=== PATIENT | female | born 1940 | race Caucasian/White ===

== ENCOUNTER 2016-10-12 19:01 | Inpatient (IN) | payer OTHER ==
[~2016-10-12] VITALS: Ht 180.3 cm; Wt 63.5 kg
--- NOTE | ~2016-10-12 | EKG ---
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 : 1940 Requested By: Maurizio Beach Order Number: [id number] MD: Tray Gonzalez Measurements Intervals [place] Rate: 79 P: -70 TN: 178 QRS: -7 QRSD: 90 T: -65 QT: 433 QTc: 497 Interpretive Statements Ectopic atrial rhythm Multiple ventricular premature complexes Abnormal R-wave progression, early transition ST and T wave abnormality Borderline prolonged QT interval Compared to ECG 08/06/2016 19:00:38 supraventricular complexes no longer present Electronically Signed On 10-13-2016 9:23:53 CDT by Tray Gonzalez [email or web address] <ELECTRONICALLY SIGNED> By: Tray Gonzalez MD, [facility] 10/13/16 0923 22 22 Tray Gonzalez MD, [facility] /EPI
--- NOTE | ~2016-10-12 | D ---
[facility] [address] [place] [address] DISCHARGE SUMMARY Name: YUARIAS Room #: 422-P [facility] IN M.R.#: [id number] Admission: 10/12/16 Attend Phys: Sharon Mora MD Discharge: 10/14/16 Date of : 38 Report #: [id number] THIS REPORT FOR: //name// CC: Carla Mora DATE OF SERVICE: 10/14/2016 HISTORY OF PRESENT ILLNESS: The patient is a 76-year-old female who was brought to the emergency room for low energy level, and inability to take care herself. She was found to have urinary tract infection, as well as hypokalemia, with potassium of 2.9. Please refer to the admission H and P for details. The patient was hospitalized at [facility]. She was started on Rocephin for UTI treatment. She was also provided with IV fluids, as dehydration was suspected. Urine culture grew E. coli, that is resistant to Cipro, sensitive to Bactrim. The patient was also found to have hypokalemia, which is a chronic problem for the patient. Potassium has been replaced. The patient states that she cannot take potassium pills, because she develops nausea. I checked with the pharmacy, and enteric-coated tablet can be provided to the patient. The patient also has history of hypertension, she is on amlodipine and valsartan. Given hypokalemia, workup for hyperaldosteronism can be warranted as an outpatient. The patient was seen and evaluated by physical therapist. She is still weak. She will benefit from rehab. The patient will be transferred to halfway facility. Currently, the patient's condition is medically stable as documented in the patient's chart. DISCHARGE DIAGNOSES: 1. Severe urinary tract infection due to Escherichia coli. Clinically much better. 2. Hypokalemia, replaced. 3. Hypertension. The patient was hypotensive on admission, but now blood pressure is stable. Medications will be resumed. 4. Chronic hypokalemia. Potassium will be replaced. The patient may need to have further workup for hyperaldosteronism. 5. History of depression. 6. Mild protein-calorie malnutrition. 7. History of PE, Xarelto was discontinued in the beginning of August 2016. 8. Chronic back pain. 9. Debility. [address] [address] DISCHARGE SUMMARY Name: ARIAS YU Room #: 422-P [facility] IN .R.#: [id number] Admission: 10/12/16 Attend Phys: Sharon Mora MD Discharge: 10/14/16 Date of : 38 Report #: [id number] DISCHARGE MEDICATIONS: Please refer to the medication reconciliation list in EMR. DISPOSITION: The patient is discharged to a halfway facility. FOLLOWUP PLAN: Follow up with the primary care physician in 1-2 weeks. I spent about 30 minutes to coordinate the patient's discharge from the hospital. <ELECTRONICALLY SIGNED> By: Sharon Mora MD 10/18/16 2227 1342 1422 Sharon Mora MD /nt
[~2016-10-12 19:01] MED LIST: CIPRO500 MG PO; DIOVAN160 MG PO; EFFER-K 20 MEQ20 ME1 PO; LIDODERM 5%1 PATC1 TRANSDERM; MACROBID 100 M100 M1 PO; NEURONTIN 300300 M1 PO; NEURONTIN 300M300 M2 PO; NORVASC10 MG PO; OXYCONTIN20 M1 PO; PERCOCET 10-321 EACH PO; PROTONIX40 M1 PO; SLOW-MAG64 MG PO; XARELTO15 MG PO; XARELTO20 MG PO; ZANAFLEX4 M2 PO
[2016-10-12 19:13] VITALS: BP 113/68
[2016-10-12] MEDS ORDERED: REQUIP 0.25 M0.25 M1 PO (19:20)
[2016-10-12 19:35] LABS: URINE BILIRUBIN NEGATIVE (Negative); URINE BLOOD NEGATIVE (Negative); URINE COLOR YELLOW; URINE GLUCOSE-RANDOM* NEGATIVE (Negative); URINE KETONES 1+ (Negative); URINE LEUKOCYTES-REFLEX 1+ (Negative); URINE PROTEIN (DIPSTICK) NEGATIVE (Negative)
[2016-10-12 19:59] LABS: ABSOLUTE NEUTROPHILS 3.6 thou/uL (1.4-8.2); BASOPHILS 0.7 % (0.0-2.0); HEMATOCRIT 44.4 % (37.0-47.0); HEMOGLOBIN 15.3 gm/dL (12.0-15.0); MCHC 34.5 g/dL (28.0-37.0); MCV 101.3 fL (80.0-100.0); MONOCYTES 9.4 % (1.0-8.0); PLATELET COUNT 286 thou/uL (150-400); POLYS 57.9 % (36.0-66.0); RBC 4.39 mil/uL (4.20-5.00); RDW 13.1 % (10.5-14.5); WBC 6.2 thou/uL (4.0-11.0)
[2016-10-12 20:04] LABS: MANUAL DIFF NO
[2016-10-12 20:07] LABS: ANION GAP 15 mmol/L (7-16); BUN 8 mg/dL (7-18); CALCIUM 8.8 mg/dL (8.5-10.1); CHLORIDE 100 mmol/L (98-107); CO2 22 mmol/L (21-32); CREATININE 0.5 mg/dL (0.6-1.0); GLUCOSE 124 mg/dL (74-106); SODIUM 137 mmol/L (136-145)
[2016-10-12 20:12] LABS: POTASSIUM 2.9 mmol/L (3.5-5.1)
[2016-10-12 20:14] LABS: ALKALINE PHOSPHATASE 104 U/L (46-116); SGOT 31 U/L (15-37); SGPT 18 U/L (30-65); TOTAL BILIRUBIN 0.5 mg/dL (<0.1-1.0); TOTAL PROTEIN 7.1 g/dL (6.4-8.2); TROPONIN-I < 0.04 ng/mL (<0.04-0.07)
[2016-10-12 20:17] LABS: SQUAMOUS >10 Many /LPF (0-3)
[2016-10-12 20:18] LABS: CASTS None Seen /LPF (None Seen); CRYSTALS None Seen /LPF (None Seen); URINE RBC 0-2 Rare /HPF (0-2); URINE WBC-REFLEX 0-5 Rare /HPF (0-5)
[2016-10-12 21:43] VITALS: BP 105/63
[2016-10-12 22:30] VITALS: BP 133/77
[2016-10-13 05:26] VITALS: BP 153/99
[2016-10-13 05:32] LABS: ABSOLUTE NEUTROPHILS 2.6 thou/uL (1.4-8.2); BASOPHILS 0.7 % (0.0-2.0); EOSINOPHILS 2.5 % (0.0-3.0); HEMATOCRIT 41.2 % (37.0-47.0); MCH 34.7 pg (26.0-34.0); MCV 102.1 fL (80.0-100.0); MONOCYTES 9.8 % (1.0-8.0); PLATELET COUNT 275 thou/uL (150-400); RBC 4.04 mil/uL (4.20-5.00); WBC 5.6 thou/uL (4.0-11.0)
[2016-10-13 05:49] LABS: CALCIUM 8.2 mg/dL (8.5-10.1); CREATININE 0.5 mg/dL (0.6-1.0); MAGNESIUM 1.3 mg/dL (1.8-2.4); POTASSIUM 3.8 mmol/L (3.5-5.1)
[2016-10-13 05:51] LABS: MANUAL DIFF NO
[2016-10-13 07:22] VITALS: BP 114/74
[2016-10-13 15:53] VITALS: BP 133/70
[2016-10-13 23:00] VITALS: BP 139/88
[2016-10-14 04:35] VITALS: BP 145/79
[2016-10-14 05:25] LABS: ABSOLUTE NEUTROPHILS 2.3 thou/uL (1.4-8.2); BASOPHILS 0.7 % (0.0-2.0); EOSINOPHILS 4.2 % (0.0-3.0); HEMATOCRIT 37.1 % (37.0-47.0); HEMOGLOBIN 12.8 gm/dL (12.0-15.0); LYMPHOCYTES 46.6 % (24.0-44.0); MCH 35.1 pg (26.0-34.0); MCHC 34.4 g/dL (28.0-37.0); MONOCYTES 8.2 % (1.0-8.0); PLATELET COUNT 228 thou/uL (150-400); POLYS 40.3 % (36.0-66.0); RBC 3.64 mil/uL (4.20-5.00); RDW 13.2 % (10.5-14.5); WBC 5.8 thou/uL (4.0-11.0)
[2016-10-14 05:29] LABS: MANUAL DIFF NO
[2016-10-14 05:37] LABS: CALCIUM 7.7 mg/dL (8.5-10.1); CREATININE 0.4 mg/dL (0.6-1.0)
[2016-10-14 07:38] VITALS: BP 147/80
[2016-10-14] MEDS ORDERED: POTASSIUM20 PO (13:48)
[2016-10-14] MEDS ORDERED: BACTRIM DS TAB1 EAC1 PO (13:48)
[2016-10-14] MEDS ORDERED: DIOVAN160 MG PO (13:48)
[2016-10-14] MEDS ORDERED: MAGNESIUM OXID400 MG PO (13:48)
[2016-10-14] MEDS ORDERED: PERCOCET 10-321 EACH PO (13:48)
[2016-10-14 15:58] VITALS: BP 137/86
== END 2016-10-14 22:55 | DRG 689 ==
LOC: ER 19:01 → EROBS 21:03 → 4E 21:03
PROVIDERS: Internal Medicine Endocrinology, Diabetes & Metabolism; Nurse Practitioner; Physician Assistant
DX: N39.0 Urinary tract infection, site not specified (principal); G92 Toxic encephalopathy; E44.1 Mild protein-calorie malnutrition; E87.2 Acidosis; Z68.1 Body mass index [BMI] 19.9 or less, adult; I10 Essential (primary) hypertension; K58.9 Irritable bowel syndrome, unspecified; E87.6 Hypokalemia; E86.0 Dehydration; E26.9 Hyperaldosteronism, unspecified; B96.20 Unspecified Escherichia coli [E. coli] as the cause of diseases classified elsewhere; F32.9 Major depressive disorder, single episode, unspecified; R53.81 Other malaise; G89.29 Other chronic pain; M54.9 Dorsalgia, unspecified; E78.5 Hyperlipidemia, unspecified; Z86.711 Personal history of pulmonary embolism; Z98.42 Cataract extraction status, left eye; Z98.41 Cataract extraction status, right eye; Z88.0 Allergy status to penicillin; Z90.49 Acquired absence of other specified parts of digestive tract; Z88.6 Allergy status to analgesic agent; Z91.040 Latex allergy status
CPT/HCPCS: 10183

== ENCOUNTER 2016-11-08 23:08 | Inpatient (IN) | payer OTHER ==
[~2016-11-08] VITALS: Ht 182.9 cm; Wt 64.9 kg
--- NOTE | ~2016-11-08 | EKG ---
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 : 1940 Requested By: Denilson Ayala Order Number: [id number] MD: Tray Gonzalez Measurements Intervals [place] Rate: 84 P: -45 [place]: 187 QRS: -9 QRSD: 89 T: -75 QT: 377 QTc: 446 Interpretive Statements Sinus or ectopic atrial rhythm Low voltage, precordial leads Nonspecific T abnormalities, diffuse leads Compared to ECG 10/12/2016 19:23:47 Ventricular premature complex(es) no longer present Electronically Signed On 11-09-2016 7:42:31 CDT by Tray Gonzalez [email or web address] <ELECTRONICALLY SIGNED> By: Tray Gonzalez MD, [facility] 11/09/16 0742 2317 2317 Tray Gonzalez MD, [facility] /EPI
[~2016-11-08 23:08] MED LIST changes: +BACTRIM DS TAB1 EAC1 PO; +MAGNESIUM OXID400 MG PO; +POTASSIUM20 PO; +REQUIP 0.25 M0.25 M1 PO
[2016-11-08 23:09] VITALS: BP 111/76
[2016-11-08 23:57] LABS: BASOPHILS 0.9 % (0.0-2.0); EOSINOPHILS 0.8 % (0.0-3.0); HEMATOCRIT 41.6 % (37.0-47.0); HEMOGLOBIN 14.1 gm/dL (12.0-15.0); LYMPHOCYTES 19.4 % (24.0-44.0); MCH 34.4 pg (26.0-34.0); MCHC 33.9 g/dL (28.0-37.0); MCV 101.4 fL (80.0-100.0); PLATELET COUNT 269 thou/uL (150-400); POLYS 70.9 % (36.0-66.0); RDW 13.5 % (10.5-14.5); WBC 8.4 thou/uL (4.0-11.0)
[2016-11-09 00:10] LABS: MANUAL DIFF NO
[2016-11-09 00:16] LABS: ALBUMIN 2.9 g/dL (3.4-5.0); ALKALINE PHOSPHATASE 105 U/L (46-116); ANION GAP 18 mmol/L (7-16); BUN 8 mg/dL (7-18); CALCIUM 8.7 mg/dL (8.5-10.1); CHLORIDE 99 mmol/L (98-107); CO2 20 mmol/L (21-32); CREATININE 0.5 mg/dL (0.6-1.0); GLUCOSE 155 mg/dL (74-106); MAGNESIUM 1.6 mg/dL (1.8-2.4); NT-PRO BRAIN NAT PEPTIDE 407 pg/mL (<300); SGOT 15 U/L (15-37); SGPT 12 U/L (30-65); SODIUM 137 mmol/L (136-145); TOTAL BILIRUBIN 0.5 mg/dL (<0.1-1.0); TOTAL PROTEIN 6.8 g/dL (6.4-8.2); TROPONIN-I < 0.04 ng/mL (<0.04-0.07)
[2016-11-09 00:17] LABS: POTASSIUM 2.6 mmol/L (3.5-5.1)
[2016-11-09 00:45] LABS: ABG SAMPLE TYPE VENOUS; BE(vivo) -5.2 mmol/L (-2 to +3); HCO3 18.7 mmol/L (22.0-26.0); O2(CT) 14.3 mL/dL (15.0-23.0); O2Hb VENOUS 70.1 (65.0-85.0); PCO2 VENOUS 31.8 mmHg (41.0-51.0); PO2 VENOUS 38.7 mmHg (35.0-45.0); sO2 VENOUS 73.3 % (65.0-85.0); tCO2 19.7 mmol/L (24.0-30.0)
[2016-11-09 00:46] LABS: LACTATE 4.68 mmol/L (0.5-2.0); STICK SITE LAC
[2016-11-09 01:08] VITALS: BP 106/70
[2016-11-09 01:16] LABS: URINE BILIRUBIN NEGATIVE (Negative); URINE BLOOD NEGATIVE (Negative); URINE COLOR YELLOW; URINE GLUCOSE-RANDOM* NEGATIVE (Negative); URINE KETONES NEGATIVE (Negative); URINE NITRITE NEGATIVE (Negative); URINE PROTEIN (DIPSTICK) NEGATIVE (Negative); URINE SPECIFIC GRAVITY <= 1.005 (1.003-1.035); URINE UROBILINOGEN 0.2 E.U./dl (0.2-1.0)
[2016-11-09 01:30] VITALS: BP 136/68
[2016-11-09 05:01] VITALS: BP 122/64
[2016-11-09 08:00] VITALS: BP 142/82
[2016-11-09 08:18] LABS: CALCIUM 8.5 mg/dL (8.5-10.1); CREATININE 0.4 mg/dL (0.6-1.0); MAGNESIUM 1.5 mg/dL (1.8-2.4)
[2016-11-09 08:21] LABS: POTASSIUM 3.6 mmol/L (3.5-5.1)
[2016-11-09 16:00] VITALS: BP 116/59
[2016-11-09 20:00] VITALS: BP 132/58
[2016-11-10 04:40] VITALS: BP 128/62
[2016-11-10 06:04] LABS: HEMATOCRIT 39.7 % (37.0-47.0); HEMOGLOBIN 13.7 gm/dL (12.0-15.0); MCH 34.9 pg (26.0-34.0); MCHC 34.5 g/dL (28.0-37.0); MCV 101.1 fL (80.0-100.0); RBC 3.93 mil/uL (4.20-5.00); RDW 13.6 % (10.5-14.5); WBC 5.6 thou/uL (4.0-11.0)
[2016-11-10 06:18] LABS: ALBUMIN 2.6 g/dL (3.4-5.0); CALCIUM 8.5 mg/dL (8.5-10.1); CREATININE 0.5 mg/dL (0.6-1.0); POTASSIUM 3.1 mmol/L (3.5-5.1); TOTAL BILIRUBIN 0.9 mg/dL (<0.1-1.0); TOTAL PROTEIN 6.3 g/dL (6.4-8.2)
[2016-11-10] MEDS ORDERED: TOBRAMYCIN SULFA5 M1 OP (11:41)
[2016-11-10 13:05] LABS: MAGNESIUM 1.6 mg/dL (1.8-2.4); POTASSIUM 3.4 mmol/L (3.5-5.1)
[2016-11-10 16:01] VITALS: BP 107/61
[2016-11-10 19:24] VITALS: BP 127/86
[2016-11-10 19:58] LABS: MAGNESIUM 1.7 mg/dL (1.8-2.4)
[2016-11-10 20:03] LABS: POTASSIUM 4.5 mmol/L (3.5-5.1)
[2016-11-11 05:03] VITALS: BP 121/74
[2016-11-11 09:00] VITALS: BP 98/56
[2016-11-11 15:48] VITALS: BP 98/54
[2016-11-11 19:42] VITALS: BP 133/70
[2016-11-12 05:52] VITALS: BP 125/55
[2016-11-12 08:00] VITALS: BP 120/49
[2016-11-12] MEDS ORDERED: PERCOCET 10-321 EACH PO (09:25)
[2016-11-12 16:00] VITALS: BP 107/59
[2016-11-12 17:03] VITALS: BP 107/59
[2016-11-12 20:00] VITALS: BP 112/59
[2016-11-13 04:00] VITALS: BP 121/61
[2016-11-13 09:16] VITALS: BP 122/63
[2016-11-13 10:23] LABS: CALCIUM 9.1 mg/dL (8.5-10.1); CREATININE 0.6 mg/dL (0.6-1.0); POTASSIUM 4.2 mmol/L (3.5-5.1)
[2016-11-15 08:37] VITALS: BP 107/59
== END 2016-11-13 13:30 | disposition home health service (06) | DRG 391 ==
LOC: ER 23:08 → EROBS 11-09 00:27 → 4S 11-09 00:27
PROVIDERS: Emergency Medicine; Family Medicine
DX: R19.7 Diarrhea, unspecified (principal); E43 Unspecified severe protein-calorie malnutrition; Z68.1 Body mass index [BMI] 19.9 or less, adult; R53.1 Weakness; I10 Essential (primary) hypertension; E78.5 Hyperlipidemia, unspecified; E87.6 Hypokalemia; E83.42 Hypomagnesemia; E88.09 Other disorders of plasma-protein metabolism, not elsewhere classified; M19.90 Unspecified osteoarthritis, unspecified site; G25.81 Restless legs syndrome; Z98.42 Cataract extraction status, left eye; Z98.41 Cataract extraction status, right eye; Z90.49 Acquired absence of other specified parts of digestive tract; Z86.711 Personal history of pulmonary embolism; Z88.0 Allergy status to penicillin; Z88.8 Allergy status to other drugs, medicaments and biological substances; Z91.040 Latex allergy status
CPT/HCPCS: 10100

== ENCOUNTER → 2017-01-12 | Outpatient (CLI) | payer OTHER ==
[~2017-01-12] VITALS: Ht 152.4 cm; Wt 55.3 kg
[~2017-01-12] MED LIST changes: +MAGOX 400400 MG PO; +NEURONTIN300 MG PO; +ROXICODONE5 MG PO; +TOBRAMYCIN SULFA5 M1 OP; +VALSARTAN160 MG PO; +XANAX1 MG PO
--- NOTE | ~2017-01-12 | HPC ---
[facility] [place] [address] PAIN MANAGEMENT CONSULTATION Name: ARIAS YU Room #: REG DAVID Tabares.#: [id number] Admission: 01/12/17 Attend Phys: Erich Gilman DO Discharge: Date of : 38 Report #: [id number] THIS REPORT FOR: //name// CC: Carla Gilman DATE OF SERVICE: 01/12/2017 REFERRING PHYSICIAN: Carla Du M.D. CHIEF COMPLAINT: Low back pain, right lower extremity pain and paresthesias. HISTORY OF PRESENT ILLNESS: As you know, the patient is a 76-year-old female who returns today in followup visit reporting pain score 10/10. She states her pain is chronic, aching, constant in sensation, just describes the pain as exacerbated by sitting, standing, walking, improves with lying down. She states her pain intensified about 5 days ago. Denies injury or trauma that may have led to symptoms. She states she cannot at today's visit even stand up due to the ongoing pain issues. She returns today in followup visit in request of an epidural injection under fluoroscopic guidance. We will also be sending the patient for MRI of the lumbar spine for further evaluation. I do feel that the combination of pain running down the right leg would not be indicative of a lumbar radiculopathy and further imaging will be necessary to determine if surgical options might be present. She denies injury or trauma that may have led to symptom development. ALLERGIES: PENICILLIN, CODEINE, LATEX. CURRENT MEDICATIONS: Magnesium oxide, valsartan, Percocet, tobramycin, ropinirole, Lidoderm, pantoprazole, amlodipine. SOCIAL HISTORY: The patient denies tobacco, IV or illicit drug use. Admits to 7 alcoholic beverages per week. She is unaccompanied today. IMAGING: No new imaging available. PHYSICAL EXAMINATION: VITAL SIGNS: Blood pressure 132/87, pulse 102, respiratory rate 16, unlabored. The patient is 100% on room air, height 5 feet 10 inches tall, weight 122 pounds, BMI calculated 23.8. GENERAL: Well developed, well nourished, well hydrated 76-year-old female who appears her stated age. She is in moderate to severe distress, placing current pain score at 10/10. HEENT: Normocephalic, atraumatic. Pupils equal, round, reactive to light. Extraocular muscles are intact. [address] [address] PAIN MANAGEMENT CONSULTATION Name: ARIAS YU Room #: REG [facility]#: [id number] Admission: 01/12/17 Attend Phys: Erich Gilman DO Discharge: Date of : 38 Report #: [id number] EXTREMITIES: Showed no clubbing, no cyanosis, no edema. MUSCULOSKELETAL: Seated straight leg raising is positive on the right. Supine straight leg raising positive right. Rodger's test negative. Modified Gaenslen's positive for axial low back pain. Ankle clonus negative. Babinski is negative. Gait is extremely antalgic; stance is forward flexed lumbar spine. Pain is elicited with standing from a seated position. ASSESSMENT: 1. Symptomatic lumbar radiculopathy. 2. Spinal stenosis of the lumbar spine. 3. Displacement of a lumbar intervertebral disk with radiculopathy. 4. Lumbosacral spondylosis with radiculopathy. 5. Chronic intractable pain. PLAN: 1. The patient returns today in followup visit indicating increasing pain and right lower extremity symptoms. I am very concerned about a change in the patient's history and distribution of symptoms. The intensity of pain as such the patient was considering possible hospitalization. She returns today stating that she barely made it to our clinic. I have advised the patient at this time further imaging would be necessary and we are going to request a preauthorization for an epidural injection in hopes of improving pain, but first I would like the patient to undergo imaging of the lumbar spine in the form of an MRI. 2. The patient will undergo MRI of the lumbar spine without contrast. This will be obtained as quickly as possible. Once we have the findings, we will then review this with the patient and discuss the proposed epidural injection to address the lumbar radicular symptoms noted today. It does appear the patient is experiencing an L5 dermatomal distribution on the right. 3. The patient will return to our clinic once we have received precertification to undergo epidural injection under fluoroscopic guidance. We will begin the process of authorization for this epidural injection as quickly as possible. Once we have this authorization, we will have the patient return to undergo epidural injection under fluoroscopic guidance and to review requested MRI. 4. The patient was provided a prescription of Xanax 1 mg dose 1 tab now with a second tablet if necessary for anxiety prior to MRI. She was given this prescription #2 tablets, no refills. The patient was advised she cannot drive or operate heavy equipment while on this medication. 5. The patient was provided a prescription of oxycodone 5 mg dose 2 tabs p.o. now for pain prior to imaging studies. She was given this one time dose for pain control while she undergoes MRI. 6. The patient will start gabapentin 300 mg dose. She will start at 1 tab p.o. at bedtime tonight, continue for 3 nights, then increase to 2 tabs p.o. at bedtime, then 3 tabs p.o. at bedtime, escalating dose as written in the prescription. We will see the efficacy if not a followup visit. 7. We will see the patient back in followup visit once she has completed her [facility] [address] [address] PAIN MANAGEMENT CONSULTATION Name: ARIAS YU Room #: REG DAVID Alves#: [id number] Admission: 01/12/17 Attend Phys: Erich Gilman DO Discharge: Date of : 39 Report #: [id number] MRI and we have the opportunity to provide epidural injection, which is pending preauthorization. By: [id number] Erich Gilman DO /nt
[2017-01-12 10:10] VITALS: BP 132/87
== END | disposition home or self-care (01) ==
LOC: PAIN 07:08
DX: M51.16 Intervertebral disc disorders with radiculopathy, lumbar region (principal); M47.27 Other spondylosis with radiculopathy, lumbosacral region; G89.29 Other chronic pain; M48.06 Spinal stenosis, lumbar region; Z88.0 Allergy status to penicillin; Z88.8 Allergy status to other drugs, medicaments and biological substances; Z91.040 Latex allergy status; Z79.899 Other long term (current) drug therapy

== ENCOUNTER → 2017-01-18 | Outpatient (CLI) | payer OTHER ==
--- NOTE | ~2017-01-18 | HPC ---
[facility] [address] [address] PAIN MANAGEMENT CONSULTATION Name: ARIAS YU Room #: REG DAVID Tabares.#: [id number] Admission: 01/18/17 Attend Phys: Erich Gilman DO Discharge: Date of : 38 Report #: [id number] THIS REPORT FOR: //name// CC: Carla Gilman DATE OF SERVICE: 01/18/2017 REFERRING PHYSICIAN: Carla Du M.D. CHIEF COMPLAINT: Low back pain, right lower extremity pain with paresthesias. HISTORY OF PRESENT ILLNESS: As you know, the patient is a 76-year-old female who returns today in followup visit having received precertification to undergo a lumbar epidural injection under fluoroscopic guidance today in hopes of improving pain. She returns today in followup visit having had an accidental bowel movement. She is quite disheveled. I am very concerned about her home conditions. She indicates that she is assisted by a friend of hers who lives in the apartment with her, but this apparently is not working well as an arrangement standpoint as the patient does look quite disheveled, disoriented and I am quite concerned about her safety. She returns today stating pain level of 10/10, chronic in nature, aching and constant sensation, exacerbated with sitting, standing, walking and improves with lying down. ALLERGIES: PENICILLIN, CODEINE, LATEX. CURRENT MEDICATIONS: Magnesium oxide, valsartan, Percocet, tobramycin, ropinirole, Lidoderm, pantoprazole, amlodipine. SOCIAL HISTORY: The patient denies tobacco, IV or illicit drug use. Admits to 7 alcoholic beverages per week. She is accompanied by her roommate who remained in our waiting room. IMAGING: No new imaging available. PHYSICAL EXAMINATION: VITAL SIGNS: Blood pressure 140/91, pulse is 111, respiratory rate 16, unlabored. The patient is 100% on room air. GENERAL: Well developed, disheveled 76-year-old female. She is in moderate distress secondary to pain, placing current pain score 10/10. HEENT: Normocephalic, atraumatic. Pupils equal, round, reactive to light. Extraocular muscles are intact. Speech is fluent for patient. EXTREMITIES: Show no clubbing, no cyanosis, no edema. MUSCULOSKELETAL: Seated straight leg raising positive on the right, supine straight leg raising positive right. Rodger's test is negative. [address] [address] PAIN MANAGEMENT CONSULTATION Name: ARIAS YU Room #: REG [facility]#: [id number] Admission: 01/18/17 Attend Phys: Erich Gilman DO Discharge: Date of : 38 Report #: [id number] ASSESSMENT: 1. Symptomatic lumbar radiculopathy. 2. Spinal stenosis of lumbar spine. 3. Displacement of a lumbar intervertebral disk with radiculopathy. 4. Lumbosacral spondylosis with radiculopathy. 5. Chronic intractable pain. 6. Fecal incontinence. 7. Failure to thrive. PLAN: 1. The patient has returned today in followup visit where she indicates that she had an accident from a stool standpoint just prior to her coming to the hospital. The patient is disheveled. She is unkempt. She is soiled from her incontinence. I am very concerned about this patient's home conditions and wellbeing. We have recommended the patient stay around today and talked with social service assistant about giving assistance at home whether this be in home health assistance or whether the patient needs to be placed in a more traditional long-term care facility. The patient is amenable for this discussion. She will await social service assistant discussion before leaving today. 2. The patient has been consented and we will perform a lumbar epidural injection under fluoroscopic guidance. The patient was advised the risks and benefits of this procedure, states she understood and wished to proceed. 3. No medication changes were made at today's visit. The patient was provided no changes in the therapy. She is to continue medications as currently prescribed. 4. We will see the patient back in followup visit on an as needed basis for possible next in a series of epidural injections. PROCEDURE NOTE DESCRIPTION OF PROCEDURE: L5-S1 right paramedian epidural steroid injection under fluoroscopic guidance. This is the first procedure of the second series that the patient is undergoing. After obtaining written consent, the patient was taken back to the fluoroscopy suite, placed in a prone position with pillow under the abdomen to decrease lumbar lordosis. The skin overlying the lumbosacral area was then prepped and draped in aseptic fashion. The L5-S1 vertebral interspace was then identified by AP fluoroscopy. The skin and subcutaneous tissue overlying the target site of injection was anesthetized with 3 mL 1% lidocaine. A 20-gauge 3-1/2 inch Tuohy needle was then advanced under fluoroscopic guidance towards the epidural space using a right paramedian approach. The epidural space was identified using loss of resistance to air technique. After negative [facility] [address] [place] [address] PAIN MANAGEMENT CONSULTATION Name: ARIAS YU Room #: REG [place] Tabares#: [id number] Admission: 01/18/17 Attend Phys: Erich Gilman DO Discharge: Date of : 38 Report #: [id number] aspiration for heme or cerebrospinal fluid, a total of 1 mL of Omnipaque was injected. A lumbar epidurogram was confirmed using both AP and lateral fluoroscopy. After negative aspiration for heme or cerebrospinal fluid, 5 mL of a solution containing 2 mL 40 mg per mL 80 mg total triamcinolone 3 mL of Lidocaine 1% was injected in increments. Contrast spread was noted posterior epidural space. The needle was then retracted approximately half way and needle tract flushed with 1 mL of 1% lidocaine. Needle was then removed. There were no apparent sensory or motor deficits in the lower extremity following the procedure. A sterile bandage was placed over the injection site. The heart rate, pulse, oximetry and blood pressure were continuously monitored after the procedure. There were no apparent complications. The patient tolerated the procedure well and was carefully escorted to the recovery room in stable condition. There were no apparent complications. After meeting discharge criteria, the patient was then discharged home. <ELECTRONICALLY SIGNED> By: Erich Gilman DO 01/21/17 1359 1221 1335 Erich Gilman DO /nt
[2017-01-18 13:20] VITALS: BP 140/91
== END | disposition home or self-care (01) ==
LOC: PAIN 07:08
DX: M51.16 Intervertebral disc disorders with radiculopathy, lumbar region (principal); M48.06 Spinal stenosis, lumbar region; M47.27 Other spondylosis with radiculopathy, lumbosacral region; G89.29 Other chronic pain; R15.9 Full incontinence of feces

== ENCOUNTER 2017-03-04 16:32 | Emergency (ER) | payer OTHER ==
[2017-03-04 17:30] LABS: HEMATOCRIT 43.2 % (37.0-47.0); HEMOGLOBIN 15.4 gm/dL (12.0-15.0); MCH 39.9 pg (26.0-34.0); MCHC 35.7 g/dL (28.0-37.0); MCV 111.7 fL (80.0-100.0); RBC 3.87 mil/uL (4.20-5.00); RDW 15.9 % (10.5-14.5)
[2017-03-04 17:38] LABS: CALCIUM 9.2 mg/dL (8.5-10.1); CREATININE 0.6 mg/dL (0.6-1.0); POTASSIUM 3.1 mmol/L (3.5-5.1)
[2017-03-04 18:12] LABS: URINE BILIRUBIN NEGATIVE (Negative); URINE BLOOD 1+ (Negative); URINE COLOR YELLOW; URINE GLUCOSE-RANDOM* NEGATIVE (Negative); URINE KETONES 2+ (Negative); URINE LEUKOCYTES-REFLEX 2+ (Negative); URINE PROTEIN (DIPSTICK) 2+ (Negative)
[2017-03-04 18:25] LABS: CRYSTALS None Seen /LPF (None Seen); URINE WBC-REFLEX >25 Many /HPF (0-5)
[2017-03-04 18:26] LABS: CASTS None Seen /LPF (None Seen); SQUAMOUS 4-10 Moderate /LPF (0-3); URINE RBC None Seen /HPF (0-2)
[2017-03-04] MEDS ORDERED: KEFLEX500 MG PO (18:46)
[2017-03-04] MEDS ORDERED: OXYCODONE HCL 55 MG PO (18:46)
[2017-03-10] MEDS ORDERED: MONUROL3 GM PO (11:24)
== END 2017-03-04 20:57 | disposition home or self-care (01) ==
LOC: ER 16:32
PROVIDERS: Emergency Medicine
DX: M54.31 Sciatica, right side (principal); N39.0 Urinary tract infection, site not specified; G89.29 Other chronic pain; I10 Essential (primary) hypertension; K58.9 Irritable bowel syndrome, unspecified; E78.5 Hyperlipidemia, unspecified; F10.99 Alcohol use, unspecified with unspecified alcohol-induced disorder; Z86.711 Personal history of pulmonary embolism; Z87.440 Personal history of urinary (tract) infections; Z90.89 Acquired absence of other organs; Z90.49 Acquired absence of other specified parts of digestive tract; Z88.5 Allergy status to narcotic agent; Z91.040 Latex allergy status; Z88.0 Allergy status to penicillin